=== PATIENT | female | born 1955 | race Native Hawaiian/Other Pacific Islander ===

== ENCOUNTER 2021-08-19 09:25 | Outpatient (CLI) | payer OTHER, MEDICARE | END 2021-08-19 19:14 | disposition home or self-care (01) | LOC: RAD 09:25 | PROVIDERS: ATTEND Physician Assistant | DX: M54.2 Cervicalgia (principal) ==

== ENCOUNTER 2021-09-30 08:38 | Outpatient (CLI) | payer OTHER, MEDICARE | END 2021-09-30 19:40 | disposition home or self-care (01) | LOC: RAD 08:38 | PROVIDERS: ATTEND Physician Assistant | DX: M54.2 Cervicalgia (principal) ==

== ENCOUNTER 2021-11-10 08:20 | Outpatient (CLI) | payer OTHER, MEDICARE | END 2021-11-10 19:04 | disposition home or self-care (01) | LOC: RAD 08:20 | PROVIDERS: ATTEND Physician Assistant | DX: R13.19 Other dysphagia (principal) ==